=== PATIENT | female | born 1955 | race Caucasian/White ===

== ENCOUNTER 2020-02-24 10:46 | Emergency (ER) | payer OTHER ==
[~2020-02-24] VITALS: Ht 165.1 cm; Wt 79.4 kg
--- NOTE | 2020-02-24 11:01 | NUR ---
DR. RIVERO EVALUATING PATIENT
[2020-02-24] MEDS ORDERED: PANTOPRAZOLE 40 MG 10ML VIAL IV STA (11:11)
[2020-02-24] MEDS ORDERED: ONDANSETRON HCL INJ 2MG/ML 2ML 2 MG/ML VIAL IV STA (11:11)
[2020-02-24] MEDS ORDERED: MORPHINE SULFATE 2 MG/ML SYR 1ML IV STA (11:11)
[2020-02-24] MEDS ORDERED: SODIUM CHLORIDE 0.9% 1000ML 1,000 ML IV STA (11:11)
[2020-02-24 11:27] LABS: BASOPHILS # (AUTO) 0.1 (0.0-0.1); BASOPHILS % 1.2 % (0.0-1.0); EOSINOPHILS # (AUTO) 0.7 (0.0-0.4); EOSINOPHILS % 8.1 % (0.0-6.0); HEMATOCRIT 37.4 % (34.2-44.1); HEMOGLOBIN 12.3 g/dL (12.0-16.0); LYMPHOCYTES # (AUTO) 2.2 (1.0-3.2); LYMPHOCYTES % 25.2 % (18.0-39.1); MEAN CORPUSCULAR HEMOGLOBIN 28.8 pg (28-32); MEAN CORPUSCULAR HGB CONC 32.9 g/dL (31-35); MEAN CORPUSCULAR VOLUME 87.6 fL (81-99); MONOCYTES # (AUTO) 1.5 (0.2-0.8); MONOCYTES % 17.2 % (4.4-11.3); NEUTROPHILS # (AUTO) 4.1 (2.1-6.9); NEUTROPHILS % 47.8 % (38.7-80.0); PLATELET COUNT 240 x10e3/uL (140-360); RED BLOOD COUNT 4.27 x10e6/uL (3.6-5.1); RED CELL DISTRIBUTION WIDTH 14.5 % (11.7-14.4)
[2020-02-24 11:32] LABS: PARTIAL THROMBOPLASTIN TIME 31.5 seconds (23.8-35.5)
[2020-02-24 11:39] LABS: CLARITY,URINE SL CLOUDY (CLEAR); COLOR,URINE YELLOW (YELLOW)
[2020-02-24 11:40] LABS: BILIRUBIN,URINE SMALL (NEGATIVE); KETONES,URINE TRACE (NEGATIVE); LEUKOCYTE ESTERASE ,URINE NEGATIVE (NEGATIVE); NITRITE,URINE NEGATIVE (NEGATIVE); PROTEIN,URINE DIPSTICK >=300 (NEGATIVE); URINE UROBILINOGEN 0.2 mg/dL (0.2 - 1)
[2020-02-24 11:43] LABS: ALANINE AMINOTRANSFERASE 15 IU/L (0-55); ALBUMIN 3.9 g/dL (3.5-5.0); ALKALINE PHOSPHATASE 99 IU/L (40-150); ANION GAP 18.3 mmol/L (8-16); BLOOD UREA NITROGEN 16 mg/dL (7-26); BUN/CREATININE RATIO 17 (6-25); CALCIUM 10.4 mg/dL (8.4-10.2); CARBON DIOXIDE 26 mmol/L (22-29); CHLORIDE 102 mmol/L (98-107); CREATINE KINASE 84 IU/L (29-168); CREATININE, SERUM 0.93 mg/dL (0.57-1.11); EST GLOMERULAR FILTRATION RATE > 60 ML/MIN (60-); GLUCOSE 260 mg/dL (74-118); INR 1.47; LIPASE 62 U/L (8-78); MAGNESIUM 1.4 MG/DL (1.3-2.1); POTASSIUM 4.3 mmol/L (3.5-5.1); PROTHROMBIN TIME 18.7 seconds (11.9-14.5); SODIUM 142 mmol/L (136-145)
[2020-02-24 11:49] LABS: AMORPHOUS SEDIMENT,URINE MODERATE (FEW); EPITHELIAL CELLS,URINE RARE /LPF; WBC,URINE (MAN) 0-5 /HPF (0-5)
[2020-02-24 11:52] LABS: BACTERIA,URINE MODERATE /HPF
--- NOTE | 2020-02-24 12:07 | Diagnostic Imaging Report ---
EXAMINATION: CHEST SINGLE (PORTABLE) INDICATION: Abdominal pain, diarrhea COMPARISON: None FINDINGS: LINES/TUBES:None LUNGS:The lungs are well-inflated. No focal consolidation or pulmonary edema. PLEURA:No pleural effusion or pneumothorax. MEDIASTINUM:The cardiomediastinal silhouette appears normal in size and shape. BONES/SOFT TISSUES:No acute osseous injury. ABDOMEN:No free air under the diaphragm. IMPRESSION: No focal pneumonia or pulmonary edema. Signed by: Charisma Kaur MD on 02/24/2020 12:04 PM
--- OUTSIDE RECORDS SUMMARY | 2020-02-24 13:11 | XMS REPORT | Continuity of Care Document ---
Author Author [facility] Organization [facility] Address [address] [place] [address] Phone Unavailable Care Team Providers Care Production Helper Name Role Phone Milton RIVERO Attphys Unavailable Problems This patient has no known problems. Allergies, Adverse Reactions, Alerts This patient has no known allergies or adverse reactions. Medications This patient has no known medications. Procedures This patient has no known procedures. Results Test Description Test Time Test Comments Results Result Comments Source CHEST SINGLE (PORTABLE) 2020-02-24 12:03:00 [place] [address] Patient Name: VERNA VILLATORO MR #: [id number] : 1955 Age/Sex: 64/F Req #: [id number] Adm Physician: Ordered by: ABRAHAM RIVERO MD Report #: [id number] Location: ER Room/Bed: Procedure: [id number] DX/CHEST SINGLE (PORTABLE) Exam Date: 02/24/20 Exam Time: 1130 REPORT STATUS: Signed EXAMINATION: CHEST SINGLE (PORTABLE) INDICATION: Abdominal pain, diarrhea COMPARISON: None FINDINGS: LINES/TUBES:None LUNGS:The lungs are well-inflated. No focal consolidation or pulmonary edema. PLEURA:No pleural effusion or pneumothorax. MEDIASTINUM:The cardiomediastinal silhouette appears normal in size and shape. BONES/SOFT TISSUES:No acute osseous injury. ABDOMEN:No free air under the diaphragm. IMPRESSION: No focal pneumonia or pulmonary edema. Signed by: Sreedhar Matthews MD on 02/24/2020 12:04 PM Dictated By: SREEDHAR MATTHEWS MD 120 Transcribed By: MILAD on 02/24/201203 COPY TO: ABRAHAM RIVERO MD
--- NOTE | 2020-02-24 13:37 | Diagnostic Imaging Report ---
EXAM: CT Abdomen and Pelvis WITH intravenous contrast INDICATION: Abdominal pain, diarrhea COMPARISON: Chest radiograph of earlier the same day TECHNIQUE: Abdomen and pelvis were scanned utilizing a multidetector helical scanner from the lung base to the pubic symphysis after administration of IV contrast. Coronal and sagittal reformations were obtained. Routine protocol was performed. Scan was performed during portal venous phase. IV CONTRAST: 100mL of Isovue 370 ORAL CONTRAST: Water RADIATION DOSE: Total DLP: 713 mGy*cm Dose modulation, iterative reconstruction, and/or weight based adjustment of the mA/kV was utilized to reduce the radiation dose to as low as reasonably achievable. FINDINGS: LOWER THORAX: No focal lung base consolidation. HEPATOBILIARY: Diffuse hepatic steatosis. No focal liver lesion. No biliary ductal dilation. Status post cholecystectomy. SPLEEN: No splenomegaly. PANCREAS: No focal masses or ductal dilatation. ADRENALS: No adrenal nodules. KIDNEYS/URETERS: No hydronephrosis or renal calculi. 2.3 cm left midpole renal cyst. PELVIC ORGANS/BLADDER: Unremarkable. PERITONEUM / RETROPERITONEUM: No free air or fluid. LYMPH NODES: No lymphadenopathy. VESSELS: Mild scattered atherosclerotic calcifications of the nonaneurysmal abdominal aorta. GI TRACT: No abnormal bowel thickening. No bowel obstruction. Appendix not well visualized however there are no inflammatory findings in the right lower quadrant to suggest appendicitis. BONES AND SOFT TISSUES: No acute osseous injury. Degenerative changes of the symphysis pubis. IMPRESSION: Diffuse hepatic steatosis. Otherwise, no acute findings in the abdomen or pelvis. Signed by: Charisma Kaur MD on 02/24/2020 1:34 PM
[2020-02-24] MEDS ORDERED: IOPAMIDOL 370 MG/ML 200 ML INFUS..BTL INJ ONE (13:43)
--- NOTE | 2020-02-24 14:05 | NUR ---
Pt received CT scan.
--- NOTE | 2020-02-24 14:27 | Emergency Department Note ---
History of Present Illnes History of Present Illness Chief Complaint: Abdominal Complaints History of Present Illness This is a 64 year old female C/O 10 DAYS BLOATING, LOW GRADE TEMP 100.9, MULTIPLE EPISODES OF DIARRHEA. DENIES ANY N/V. 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 Any updates have been documented here. Past Medical History Recent Fever: No Clinical Suspicion of Infectio: No New/Unexplained Change in Ment: No Past Medical History: Hypertension, Diabetes, Hyperlipedemia Past Surgical History: Cholecysctectomy, , Knee Replacement Other Surgery: EXPLORATORY CYST REMOVAL Social History Smoking Cessation: Former smoker Counseling Performed: No Alcohol Use: Social Any Illegal Drug Use: No TB Exposure/Symptoms: No Physically hurt or threatened: No Family History Family history of heart diseas: No Other Any Pre-Existing Lines (PICC,: No Review of Systems Review of Systems Constitutional: Reports no symptoms EENTM: Reports no symptoms Cardiovascular: Reports no symptoms Respiratory: Reports no symptoms Gastrointestinal: Reports as per HPI Genitourinary: Reports no symptoms Musculoskeletal: Reports no symptoms Integumentary: Reports no symptoms Neurological: Reports no symptoms Psychological: Reports no symptoms Endocrine: Reports no symptoms Hematological/Lymphatic: Reports no symptoms Physical Exam Related Data Allergies: Coded Allergies: No Known Allergies (Unverified , 02/24/20) Triage Vital Signs Vital Signs Date Time Temp Pulse Resp B/P (MAP) Pulse Ox O2 Delivery O2 Flow Rate FiO2 02/24/20 10:51 97.8 71 18 164/80 98 Room Air Vital signs reviewed: Yes Physical Exam CONSTITUTIONAL Constitutional: Present well-developed, Present well-nourished HENT HENT: Present normocephalic, Present atraumatic, Present oropharynx rogelio ar/moist, Present nose normal HENT L/R: Present left ext ear normal, Present right ext ear normal EYES Eyes: Reports PERRL, Reports conjunctivae normal NECK Neck: Present ROM normal PULMONARY Pulmonary: Present effort normal, Present breath sounds normal CARDIOVASCULAR Cardiovascular: Present regular rhythm, Present heart sounds normal, Present capillary refill normal, Present normal rate GASTROINTESTINAL Abdominal: Present soft, Present nontender, Present bowel sounds normal GENITOURINARY Genitourinary: Present exam deferred SKIN Skin: Present warm, Present dry MUSCULOSKELETAL Musculoskeletal: Present ROM normal NEUROLOGICAL Neurological: Present alert, Present oriented x 3, Present no gross motor or sensory deficits PSYCHOLOGICAL Psychological: Present mood/affect normal, Present judgement normal Results Laboratory Result Diagram: 02/24/20 1100 02/24/20 1100 Laboratory Laboratory Tests Test 02/24/20 11:20 02/24/20 11:05 02/24/20 11:00 Coronavirus (PCR) Not detected (NOTDETECTED) Urine Color Yellow (YELLOW) Urine Clarity Sl cloudy (CLEAR) Urine pH 5 (5 - 7) Urine Specific [place] >=1.030 (1.010-1.025) Urine Protein >=300 (NEGATIVE) Urine Glucose (UA) 1+ (NEGATIVE) Urine Ketones Trace (NEGATIVE) Urine Blood Negative (NEGATIVE) Urine Nitrite Negative (NEGATIVE) Urine Bilirubin Small (NEGATIVE) Urine Urobilinogen 0.2 mg/dL (0.2 - 1) Urine Leukocyte Esterase Negative (NEGATIVE) Urine RBC None /HPF (0-5) Urine WBC 0-5 /HPF (0-5) Urine Epithelial Cells Rare /LPF (NONE) Urine Amorphous Sediment Moderate (FEW) Urine Bacteria Moderate /HPF (NONE) White Blood Count 8.64 x10e3/uL (4.8-10.8) Red Blood Count 4.27 x10e6/uL (3.6-5.1) Hemoglobin 12.3 g/dL (12.0-16.0) Hematocrit 37.4 % (34.2-44.1) Mean Corpuscular Volume 87.6 fL (81-99) Mean Corpuscular Hemoglobin 28.8 pg (28-32) Mean Corpuscular Hemoglobin Concent 32.9 g/dL (31-35) Red Cell Distribution Width 14.5 % (11.7-14.4) Platelet Count 240 x10e3/uL (140-360) Neutrophils (%) (Auto) 47.8 % (38.7-80.0) Lymphocytes (%) (Auto) 25.2 % (18.0-39.1) Monocytes (%) (Auto) 17.2 % (4.4-11.3) Eosinophils (%) (Auto) 8.1 % (0.0-6.0) Basophils (%) (Auto) 1.2 % (0.0-1.0) Neutrophils # (Auto) 4.1 (2.1-6.9) Lymphocytes # (Auto) 2.2 (1.0-3.2) Monocytes # (Auto) 1.5 (0.2-0.8) Eosinophils # (Auto) 0.7 (0.0-0.4) Basophils # (Auto) 0.1 (0.0-0.1) Absolute Immature Granulocyte (auto 0.04 x10e3/uL (0-0.1) Prothrombin Time 18.7 seconds (11.9-14.5) Prothromb Time International Ratio 1.47 Activated Partial Thromboplast Time 31.5 seconds (23.8-35.5) Sodium Level 142 mmol/L (136-145) Potassium Level 4.3 mmol/L (3.5-5.1) Chloride Level 102 mmol/L (98-107) Carbon Dioxide Level 26 mmol/L (22-29) Anion Gap 18.3 mmol/L (8-16) Blood Urea Nitrogen 16 mg/dL (7-26) Creatinine 0.93 mg/dL (0.57-1.11) Estimat Glomerular Filtration Rate > 60 ML/MIN (60-) BUN/Creatinine Ratio 17 (6-25) Glucose Level 260 mg/dL (74-118) Calcium Level 10.4 mg/dL (8.4-10.2) Magnesium Level 1.4 MG/DL (1.3-2.1) Total Bilirubin 0.7 mg/dL (0.2-1.2) Aspartate Amino Transf (AST/SGOT) 14 IU/L (5-34) Alanine Aminotransferase (ALT/SGPT) 15 IU/L (0-55) Alkaline Phosphatase 99 IU/L (40-150) Creatine Kinase 84 IU/L (29-168) Creatine Kinase MB 1.40 ng/mL (0-5.0) Troponin I < 0.001 ng/mL (0-0.300) Total Protein 7.8 g/dL (6.5-8.1) Albumin 3.9 g/dL (3.5-5.0) Globulin 3.9 g/dL (2.3-3.5) Albumin/Globulin Ratio 1.0 (0.8-2.0) Lipase 62 U/L (8-78) Lab results reviewed: Yes Imaging Imaging results reviewed: Yes Impressions EXAMINATION: CHEST SINGLE (PORTABLE) INDICATION: Abdominal pain, diarrhea COMPARISON: None FINDINGS: LINES/TUBES:None LUNGS:The lungs are well-inflated. No focal consolidation or pulmonary edema. PLEURA:No pleural effusion or pneumothorax. MEDIASTINUM:The cardiomediastinal silhouette appears normal in size and shape. BONES/SOFT TISSUES:No acute osseous injury. ABDOMEN:No free air under the diaphragm. IMPRESSION: No focal pneumonia or pulmonary edema. Signed by: Charisma Kaur MD on 02/24/2020 12:04 PM EXAM: CT Abdomen and Pelvis WITH intravenous contrast INDICATION: Abdominal pain, diarrhea COMPARISON: Chest radiograph of earlier the same day TECHNIQUE: Abdomen and pelvis were scanned utilizing a multidetector helical scanner from the lung base to the pubic symphysis after administration of IV contrast. Coronal and sagittal reformations were obtained. Routine protocol was performed. Scan was performed during portal venous phase. IV CONTRAST: 100mL of Isovue 370 ORAL CONTRAST: Water RADIATION DOSE: Total DLP: 713 mGy*cm Dose modulation, iterative reconstruction, and/or weight based adjustment of the mA/kV was utilized to reduce the radiation dose to as low as reasonably achievable. FINDINGS: LOWER THORAX: No focal lung base consolidation. HEPATOBILIARY: Diffuse hepatic steatosis. No focal liver lesion. No biliary ductal dilation. Status post cholecystectomy. SPLEEN: No splenomegaly. PANCREAS: No focal masses or ductal dilatation. ADRENALS: No adrenal nodules. KIDNEYS/URETERS: No hydronephrosis or renal calculi. 2.3 cm left midpole renal cyst. PELVIC ORGANS/BLADDER: Unremarkable. PERITONEUM / RETROPERITONEUM: No free air or fluid. LYMPH NODES: No lymphadenopathy. VESSELS: Mild scattered atherosclerotic calcifications of the nonaneurysmal abdominal aorta. GI TRACT: No abnormal bowel thickening. No bowel obstruction. Appendix not well visualized however there are no inflammatory findings in the right lower quadrant to suggest appendicitis. BONES AND SOFT TISSUES: No acute osseous injury. Degenerative changes of the symphysis pubis. IMPRESSION: Diffuse hepatic steatosis. Otherwise, no acute findings in the abdomen or pelvis. Signed by: Charisma Kaur MD on 02/24/2020 1:34 PM Assessment & Plan Medical Decision Making MDM RECENT COVID WITH ABD PAIN AND N/D - CHECK CBC, CHEM, LIPASE, CARDIACS, UA/CX, CT ABD/PELVIS, COVID SWAB - R/O ELECTROLYTE ABNL, RENAL INSUFF, SBO, MASS, COLITIS, PANCREATITIS Reassessment Reassessment DC HOME, BENTYL, ZOFRAN ODT, PUCH PO FLUIDS, F/U PCP TOMORROW Assessment & Plan Final Impression: (1) Diarrhea (2) Abdominal cramps Depart Disposition: HOME, SELF-CARE Last Vital Signs Date Time Temp Pulse Resp B/P (MAP) Pulse Ox O2 Delivery O2 Flow Rate FiO2 02/24/20 11:29 70 18 157/67 99 Room Air 02/24/20 10:51 97.8 Medications in the ED Pantoprazole Sodium 40 mg ONCE STAT IV Last administered on 02/24/20at 11:41; Admin Dose 40 MG; Start 02/24/20 at 11:11; Stop 02/24/20 at 11:24; Status DC Morphine Sulfate 4 mg ONCE STAT IV Last administered on 02/24/20at 11:41; Admin Dose 4 MG; Start 02/24/20 at 11:11; Stop 02/24/20 at 11:23; Status DC Ondansetron HCl 4 mg ONCE STAT IV Last administered on 02/24/20at 11:41; Admin Dose 4 MG; Start 02/24/20 at 11:11; Stop 02/24/20 at 11:23; Status DC Sodium Chloride 1,000 ml @ 0 mls/hr Q0M STAT IV Last administered on 02/24/20at 11:41; Admin Dose 999 MLS/HR; Start 02/24/20 at 11:11; Stop 02/24/20 at 11:15; Status DC Iopamidol 74,000 mg STK-MED ONCE INJ ; Start 02/24/20 at 13:43; Stop 02/24/20 at 13:37; Status DC ABRAHAM RIVERO MD Feb 24, 2020 14:26
[2020-02-24 14:54] VITALS: BP 148/66
== END 2020-02-24 15:06 | disposition home or self-care (01) ==
LOC: ER 11:00
DX: R10.9 Unspecified abdominal pain (principal); R19.7 Diarrhea, unspecified; K76.0 Fatty (change of) liver, not elsewhere classified; I10 Essential (primary) hypertension; E11.9 Type 2 diabetes mellitus without complications; E78.5 Hyperlipidemia, unspecified; Z11.59 Encounter for screening for other viral diseases; Z87.891 Personal history of nicotine dependence
CPT/HCPCS: 36415; 71045; 74177; 80053; 81001; 82550; 82553; 83690; 83735; 84484; 85025; 85610; 85730; 87086; 99284; C9113; J2270; J2405; J7030; Q9967; U0002

== ENCOUNTER 2020-06-10 19:03 | Inpatient (IN) | payer OTHER ==
[~2020-06-10] VITALS: Ht 165.1 cm; Wt 79.4 kg
[2020-06-10 19:31] LABS: BASOPHILS # (AUTO) 0.1 (0.0-0.1); BASOPHILS % 0.7 % (0.0-1.0); EOSINOPHILS # (AUTO) 0.2 (0.0-0.4); EOSINOPHILS % 2.2 % (0.0-6.0); HEMATOCRIT 39.4 % (34.2-44.1); HEMOGLOBIN 12.8 g/dL (12.0-16.0); LYMPHOCYTES # (AUTO) 1.7 (1.0-3.2); LYMPHOCYTES % 17.1 % (18.0-39.1); MEAN CORPUSCULAR HEMOGLOBIN 29.1 pg (28-32); MEAN CORPUSCULAR HGB CONC 32.5 g/dL (31-35); MEAN CORPUSCULAR VOLUME 89.5 fL (81-99); MONOCYTES # (AUTO) 0.7 (0.2-0.8); MONOCYTES % 6.7 % (4.4-11.3); NEUTROPHILS # (AUTO) 7.4 (2.1-6.9); PLATELET COUNT 237 x10e3/uL (140-360); RED CELL DISTRIBUTION WIDTH 13.9 % (11.7-14.4)
[2020-06-10] MEDS ORDERED: NITROGLYCERIN 2% OINT 1 GM PKT TOP ONE (19:45)
[2020-06-10 19:49] LABS: INR 0.94
[2020-06-10 19:50] LABS: PARTIAL THROMBOPLASTIN TIME 30.5 seconds (23.8-35.5)
[2020-06-10 19:55] LABS: ALANINE AMINOTRANSFERASE 28 IU/L (0-55); ALBUMIN 4.3 g/dL (3.5-5.0); ALBUMIN/GLOBULIN RATIO 1.5 (0.8-2.0); ALKALINE PHOSPHATASE 71 IU/L (40-150); BLOOD UREA NITROGEN 17 mg/dL (7-26); BUN/CREATININE RATIO 23 (6-25); CALCIUM 9.1 mg/dL (8.4-10.2); CARBON DIOXIDE 24 mmol/L (22-29); CHLORIDE 103 mmol/L (98-107); CREATINE KINASE 230 IU/L (29-168); CREATININE, SERUM 0.75 mg/dL (0.57-1.11); EST GLOMERULAR FILTRATION RATE > 60 ML/MIN (60-); GLUCOSE 170 mg/dL (74-118); SODIUM 140 mmol/L (136-145)
[2020-06-10] MEDS ORDERED: AMLODIPINE BESY10 MG (22:23)
[2020-06-10] MEDS ORDERED: VALSARTAN80 MG (22:23)
[2020-06-10] MEDS ORDERED: FENOFIBRATE145 M1 (22:23)
[2020-06-10] MEDS ORDERED: ZOLPIDEM TARTRAT5 MG (22:23)
[2020-06-10] MEDS ORDERED: ULTRAM 50MG50 MG (22:23)
[2020-06-10] MEDS ORDERED: ESIDRIX25 MG (22:23)
[2020-06-10 22:30] LABS: BILIRUBIN,URINE NEGATIVE (NEGATIVE); CLARITY,URINE CLEAR (CLEAR); COLOR,URINE YELLOW (YELLOW); KETONES,URINE NEGATIVE (NEGATIVE); LEUKOCYTE ESTERASE ,URINE NEGATIVE (NEGATIVE); NITRITE,URINE NEGATIVE (NEGATIVE); PROTEIN,URINE DIPSTICK >=300 (NEGATIVE); URINE UROBILINOGEN 0.2 mg/dL (0.2 - 1)
[2020-06-10] MEDS ORDERED: ONDANSETRON HCL INJ 2MG/ML 2ML 2 MG/ML VIAL IV STA (22:53)
[2020-06-10] MEDS ORDERED: MORPHINE SULFATE 2 MG/ML SYR 1ML IV STA (22:53)
[2020-06-10 22:54] LABS: BACTERIA,URINE FEW /HPF; EPITHELIAL CELLS,URINE FEW /LPF; WBC,URINE (MAN) 0-5 /HPF (0-5)
[2020-06-10 23:17] LABS: CREATINE KINASE MB 3.3 ng/mL (0-5.0)
[2020-06-10 23:40] VITALS: BP 158/77
[2020-06-10] MEDS ORDERED: METFORMIN HCL500 MG PO (23:43)
[2020-06-10] MEDS ORDERED: PNEUMOCOCCAL VACCINE POLYVALENT 23 MCG/0.5 ML VIAL IM SCH (23:43)
[2020-06-10] MEDS ORDERED: INFLUENZA VIRUS VAC SPLIT INJ 0.5 ML SYR IM SCH (23:43)
[2020-06-10] MEDS ORDERED: GLYBURIDE5 MG PO (23:43)
[2020-06-10] MEDS ORDERED: LABETALOL HCL100 MG PO (23:43)
[2020-06-10 23:53] VITALS: BP 158/77
[2020-06-11] VITALS (8 sets, daily range): BP systolic 132–160; BP diastolic 72–84
[2020-06-11 05:20] LABS: BASOPHILS # (AUTO) 0.1 (0.0-0.1); BASOPHILS % 0.7 % (0.0-1.0); EOSINOPHILS # (AUTO) 0.4 (0.0-0.4); HEMATOCRIT 34.7 % (34.2-44.1); HEMOGLOBIN 11.5 g/dL (12.0-16.0); LYMPHOCYTES # (AUTO) 2.6 (1.0-3.2); LYMPHOCYTES % 27.7 % (18.0-39.1); MEAN CORPUSCULAR HEMOGLOBIN 29.6 pg (28-32); MEAN CORPUSCULAR HGB CONC 33.1 g/dL (31-35); MEAN CORPUSCULAR VOLUME 89.4 fL (81-99); MONOCYTES % 10.7 % (4.4-11.3); NEUTROPHILS # (AUTO) 5.3 (2.1-6.9); NEUTROPHILS % 56.6 % (38.7-80.0); PLATELET COUNT 229 x10e3/uL (140-360); RED BLOOD COUNT 3.88 x10e6/uL (3.6-5.1); RED CELL DISTRIBUTION WIDTH 13.7 % (11.7-14.4)
[2020-06-11 05:43] LABS: ALANINE AMINOTRANSFERASE 22 IU/L (0-55); ALBUMIN 3.7 g/dL (3.5-5.0); ALBUMIN/GLOBULIN RATIO 1.5 (0.8-2.0); ALKALINE PHOSPHATASE 63 IU/L (40-150); ANION GAP 12.4 mmol/L (8-16); BLOOD UREA NITROGEN 15 mg/dL (7-26); BUN/CREATININE RATIO 23 (6-25); CALCIUM 8.8 mg/dL (8.4-10.2); CARBON DIOXIDE 26 mmol/L (22-29); CHLORIDE 106 mmol/L (98-107); CREATININE, SERUM 0.66 mg/dL (0.57-1.11); EST GLOMERULAR FILTRATION RATE > 60 ML/MIN (60-); GLUCOSE 161 mg/dL (74-118); POTASSIUM 3.4 mmol/L (3.5-5.1); SODIUM 141 mmol/L (136-145)
[2020-06-11 05:57] LABS: CREATINE KINASE 157 IU/L (29-168)
[2020-06-11] MEDS ORDERED: POTASSIUM CHLORIDE 20 MEQ TAB CR PO STA (09:37)
[2020-06-11] MEDS ORDERED: FUROSEMIDE INJ 10 MG/ML 4 ML VIAL IV ONE ×2 (10:00→13:45)
[2020-06-11] MEDS ORDERED: AZITHROMYCIN 500MG/NS 250 ML 250 ML IV SCH (10:30)
[2020-06-11 10:38] LABS: CHOL/HDL RATIO 3.4 (3.0-3.6)
[2020-06-11 10:58] LABS: THYROID STIMULATING HORMONE 2.737 uIU/mL (0.350-4.940)
[2020-06-11] MEDS ORDERED: REGADENOSON 0.4 MG/5 ML SYR IV ONE (11:39)
[2020-06-11] MEDS ORDERED: POTASSIUM CHLORIDE 10MEQ EA PO ONE ×2 (13:45→16:45)
[2020-06-11] MEDS ORDERED: SODIUM CHLORIDE 0.9% 50ML 50 ML ONE (14:07)
[2020-06-11] MEDS: POTASSIUM CHLORIDE 10MEQ EA PO ONE ×2 (14:22→16:58)
[2020-06-11] MEDS: CEFTRIAXONE SOD 1 GM/NS 50 ML 50 ML IV SCH (14:22)
[2020-06-11 14:57] LABS: CREATINE KINASE 142 IU/L (29-168)
[2020-06-11] MEDS: AZITHROMYCIN 500MG/NS 250 ML 250 ML IV SCH (15:27)
[2020-06-11] MEDS: LABETALOL HCL 100 MG TAB PO SCH (16:57)
[2020-06-11] MEDS ORDERED: SODIUM CHLORIDE 0.9% 250ML 250 ML ONE (17:48)
[2020-06-11] MEDS: HYDROCODONE/APAP 5MG-325MG TAB PO PRN (18:25)
[2020-06-11] MEDS: FUROSEMIDE INJ 10 MG/ML 4 ML VIAL IV SCH (22:00)
[2020-06-12] VITALS (9 sets, daily range): BP systolic 119–152; BP diastolic 63–79
[2020-06-12] MEDS: FUROSEMIDE INJ 10 MG/ML 4 ML VIAL IV SCH ×3 (06:01→21:38)
[2020-06-12 06:47] LABS: BASOPHILS # (AUTO) 0.1 (0.0-0.1); BASOPHILS % 1.1 % (0.0-1.0); EOSINOPHILS # (AUTO) 0.5 (0.0-0.4); EOSINOPHILS % 5.3 % (0.0-6.0); HEMATOCRIT 39.7 % (34.2-44.1); HEMOGLOBIN 12.8 g/dL (12.0-16.0); LYMPHOCYTES # (AUTO) 2.1 (1.0-3.2); LYMPHOCYTES % 24.6 % (18.0-39.1); MEAN CORPUSCULAR HEMOGLOBIN 29.1 pg (28-32); MEAN CORPUSCULAR HGB CONC 32.2 g/dL (31-35); MEAN CORPUSCULAR VOLUME 90.2 fL (81-99); MONOCYTES # (AUTO) 0.9 (0.2-0.8); MONOCYTES % 11.1 % (4.4-11.3); NEUTROPHILS # (AUTO) 4.9 (2.1-6.9); NEUTROPHILS % 57.7 % (38.7-80.0); PLATELET COUNT 249 x10e3/uL (140-360); RED CELL DISTRIBUTION WIDTH 13.9 % (11.7-14.4)
[2020-06-12 07:15] LABS: ALANINE AMINOTRANSFERASE 23 IU/L (0-55); ALBUMIN/GLOBULIN RATIO 1.4 (0.8-2.0); ALKALINE PHOSPHATASE 57 IU/L (40-150); ANION GAP 12.6 mmol/L (8-16); BLOOD UREA NITROGEN 15 mg/dL (7-26); BUN/CREATININE RATIO 24 (6-25); CALCIUM 9.3 mg/dL (8.4-10.2); CARBON DIOXIDE 29 mmol/L (22-29); CHLORIDE 104 mmol/L (98-107); CREATININE, SERUM 0.63 mg/dL (0.57-1.11); EST GLOMERULAR FILTRATION RATE > 60 ML/MIN (60-); GLUCOSE 150 mg/dL (74-118); POTASSIUM 3.6 mmol/L (3.5-5.1); SODIUM 142 mmol/L (136-145)
[2020-06-12] MEDS: HYDROCODONE/APAP 5MG-325MG TAB PO PRN ×3 (08:50→21:50)
[2020-06-12] MEDS ORDERED: AMLODIPINE BESYLATE 10 MG TAB PO SCH (09:00)
[2020-06-12] MEDS ORDERED: REGADENOSON 0.4 MG/5 ML SYR IV ONE (09:11)
[2020-06-12] MEDS: HYDROCHLOROTHIAZIDE 25 MG TAB PO SCH (10:56)
[2020-06-12] MEDS: LABETALOL HCL 100 MG TAB PO SCH (10:57)
[2020-06-12] MEDS: FENOFIBRATE 145 MG TAB PO SCH (10:57)
[2020-06-12] MEDS: CEFTRIAXONE SOD 1 GM/NS 50 ML 50 ML IV SCH (10:57)
[2020-06-12] MEDS ORDERED: METFORMIN HCL 500 MG TAB PO SCH (12:15)
[2020-06-12] MEDS ORDERED: GLYBURIDE 5 MG TAB PO SCH (12:15)
[2020-06-12] MEDS: AZITHROMYCIN 500MG/NS 250 ML 250 ML IV SCH (13:59)
[2020-06-12] MEDS ORDERED: TEMAZEPAM 7.5 MG CAP PO PRN (17:00)
[2020-06-12] MEDS: CARVEDILOL 12.5 MG TAB PO SCH (17:35)
[2020-06-12] MEDS ORDERED: TEMAZEPAM 15 MG CAP PO PRN (21:00)
[2020-06-13] VITALS (11 sets, daily range): BP systolic 120–142; BP diastolic 59–85
[2020-06-13] MEDS: FUROSEMIDE INJ 10 MG/ML 4 ML VIAL IV SCH (06:22)
[2020-06-13 06:24] LABS: BASOPHILS # (AUTO) 0.1 (0.0-0.1); BASOPHILS % 0.9 % (0.0-1.0); EOSINOPHILS # (AUTO) 0.5 (0.0-0.4); EOSINOPHILS % 5.4 % (0.0-6.0); HEMATOCRIT 42.5 % (34.2-44.1); LYMPHOCYTES # (AUTO) 2.5 (1.0-3.2); LYMPHOCYTES % 27.6 % (18.0-39.1); MEAN CORPUSCULAR HEMOGLOBIN 29.2 pg (28-32); MEAN CORPUSCULAR HGB CONC 32.9 g/dL (31-35); MEAN CORPUSCULAR VOLUME 88.5 fL (81-99); MONOCYTES # (AUTO) 1.1 (0.2-0.8); NEUTROPHILS # (AUTO) 4.9 (2.1-6.9); NEUTROPHILS % 53.9 % (38.7-80.0); PLATELET COUNT 271 x10e3/uL (140-360); RED CELL DISTRIBUTION WIDTH 13.4 % (11.7-14.4)
[2020-06-13 06:44] LABS: ANION GAP 15.1 mmol/L (8-16); BLOOD UREA NITROGEN 21 mg/dL (7-26); BUN/CREATININE RATIO 30 (6-25); CALCIUM 9.4 mg/dL (8.4-10.2); CARBON DIOXIDE 30 mmol/L (22-29); CHLORIDE 101 mmol/L (98-107); CREATININE, SERUM 0.71 mg/dL (0.57-1.11); EST GLOMERULAR FILTRATION RATE > 60 ML/MIN (60-); GLUCOSE 114 mg/dL (74-118); MAGNESIUM 1.5 MG/DL (1.3-2.1); PHOSPHORUS 4.7 MG/DL (2.3-4.7); POTASSIUM 3.1 mmol/L (3.5-5.1); SODIUM 143 mmol/L (136-145)
[2020-06-13] MEDS ORDERED: ONDANSETRON HCL INJ 2MG/ML 2ML 2 MG/ML VIAL IV PRN (08:15)
[2020-06-13] MEDS: CARVEDILOL 12.5 MG TAB PO SCH ×2 (09:00→17:00)
[2020-06-13] MEDS ORDERED: LOSARTAN POTASSIUM 100 MG TAB PO SCH (09:00)
[2020-06-13] MEDS ORDERED: MAGNESIUM SULFATE 2GM/50ML 50 ML IV ONE (11:00)
[2020-06-13] MEDS ORDERED: MIDAZOLAM HCL 2 MG/2 ML VIAL ONE (11:22)
[2020-06-13] MEDS ORDERED: SODIUM CHLORIDE 0.9% 1000ML 1,000 ML ONE (11:22)
[2020-06-13] MEDS ORDERED: IOPAMIDOL 370 MG/ML 200 ML INFUS..BTL INJ ONE (11:22)
[2020-06-13] MEDS ORDERED: VERAPAMIL HCL 2.5 MG/ML 2 ML VIAL ONE (11:22)
[2020-06-13] MEDS ORDERED: FENTANYL CITRATE/PF 100MCG/2 ML INJ ONE (11:22)
[2020-06-13] MEDS ORDERED: HEPARIN SOD/SOD CHLORIDE 2,000 ML ONE (11:22)
[2020-06-13] MEDS ORDERED: LIDOCAINE HCL 2% LOCAL 20 ML VIAL ONE (11:22)
[2020-06-13] MEDS: CEFTRIAXONE SOD 1 GM/NS 50 ML 50 ML IV SCH (13:45)
[2020-06-13] MEDS ORDERED: POTASSIUM CHLORIDE 20 MEQ TAB CR PO ONE (14:00)
[2020-06-13] MEDS: FAMOTIDINE 20 MG TAB PO SCH ×2 (14:14→16:30)
[2020-06-13] MEDS: FENOFIBRATE 145 MG TAB PO SCH (14:15)
[2020-06-13] MEDS: HYDROCHLOROTHIAZIDE 25 MG TAB PO SCH (14:15)
[2020-06-13] MEDS: HYDROCODONE/APAP 5MG-325MG TAB PO PRN (15:17)
[2020-06-13] MEDS ORDERED: COZAAR100 MG PO (16:59)
[2020-06-13] MEDS ORDERED: COREG12.5 MG PO (16:59)
[2020-06-13] MEDS ORDERED: LASIX40 MG PO (17:02)
[2020-06-13] MEDS ORDERED: POTASSIUM CHLO20 ME1 PO (17:35)
== END 2020-06-13 18:21 | disposition home or self-care (01) | DRG 286 ==
LOC: ER 19:43 → ERHOLD 20:57 → MED/SURG 23:36 → MED/SURG3 06-11 17:31 → OBSVTOIN 06-12 15:57
PROVIDERS: ADMIT Internal Medicine; ATTEND Internal Medicine
PROC: 4A023N7 Measurement of Cardiac Sampling and Pressure, Left Heart, Percutaneous Approach (ICD-10-PCS; principal; 2020-06-13)
PROC: B2111ZZ Fluoroscopy of Multiple Coronary Arteries using Low Osmolar Contrast (ICD-10-PCS; 2020-06-13)
PROC: B2151ZZ Fluoroscopy of Left Heart using Low Osmolar Contrast (ICD-10-PCS; 2020-06-13)
DX: I11.0 Hypertensive heart disease with heart failure (principal); I50.21 Acute systolic (congestive) heart failure; J81.1 Chronic pulmonary edema; G47.00 Insomnia, unspecified; E78.5 Hyperlipidemia, unspecified; E11.9 Type 2 diabetes mellitus without complications; Z90.49 Acquired absence of other specified parts of digestive tract; R07.89 Other chest pain; E83.42 Hypomagnesemia; E87.6 Hypokalemia; Z86.19 Personal history of other infectious and parasitic diseases; I49.3 Ventricular premature depolarization
CPT/HCPCS: 36415; 71046; 71250; 78452; 80048; 80053; 80061; 81001; 82550; 82553; 82948; 83735; 83880; 84100; 84443; 84484; 85025; 85379; 85610; 85730; 93005; 93017; 93306; 93458; 99152; 99285; A9502; G0378; J0456; J0696; J1940; J2001; J2250; J2270; J2405; J3010; J3475; J7030; J7050; Q9967; U0002

== ENCOUNTER 2020-12-11 23:33 | Emergency (ER) | payer OTHER ==
[~2020-12-11] VITALS: Ht 165.1 cm; Wt 79.4 kg
[~2020-12-11 23:33] MED LIST: AMLODIPINE BESY10 MG; COREG12.5 MG PO; COZAAR100 MG PO; ESIDRIX25 MG; FENOFIBRATE145 M1; GLYBURIDE5 MG PO; LABETALOL HCL100 MG PO; LASIX40 MG PO; METFORMIN HCL500 MG PO; POTASSIUM CHLO20 ME1 PO; ULTRAM 50MG50 MG; VALSARTAN80 MG; ZOLPIDEM TARTRAT5 MG
== END 2020-12-12 00:15 | disposition home or self-care (01) ==
LOC: ER 23:59
DX: I10 Essential (primary) hypertension (principal); E11.9 Type 2 diabetes mellitus without complications; E78.5 Hyperlipidemia, unspecified
CPT/HCPCS: 99282

== ENCOUNTER 2022-04-07 14:13 | Inpatient (IN) | payer MEDICARE, OTHER ==
[~2022-04-07] VITALS: Ht 165.1 cm; Wt 77.1 kg
[~2022-04-07 14:13] MED LIST changes: -ESIDRIX25 MG; +ESIDRIX25 MG PO
[2022-04-07] MEDS ORDERED: Morphine 2mg Syringe 2 MG/ML SYR IV STA (14:52)
[2022-04-07] MEDS ORDERED: ONDANSETRON HCL INJ 2MG/ML 2ML 2 MG/ML VIAL IV STA (14:52)
[2022-04-07 15:26] LABS: BASOPHILS # (AUTO) 0.1 (0.0-0.1); BASOPHILS % 0.7 % (0.0-1.0); EOSINOPHILS # (AUTO) 0.5 (0.0-0.4); EOSINOPHILS % 5.5 % (0.0-6.0); HEMATOCRIT 38.4 % (34.2-44.1); HEMOGLOBIN 12.1 g/dL (12.0-16.0); LYMPHOCYTES # (AUTO) 2.6 (1.0-3.2); LYMPHOCYTES % 26.6 % (18.0-39.1); MEAN CORPUSCULAR HEMOGLOBIN 28.5 pg (28-32); MEAN CORPUSCULAR HGB CONC 31.5 g/dL (31-35); MEAN CORPUSCULAR VOLUME 90.4 fL (81-99); MONOCYTES # (AUTO) 0.9 (0.2-0.8); MONOCYTES % 9.8 % (4.4-11.3); NEUTROPHILS # (AUTO) 5.5 (2.1-6.9); NEUTROPHILS % 57.1 % (38.7-80.0); PLATELET COUNT 226 x10e3/uL (140-360); RED BLOOD COUNT 4.25 x10e6/uL (3.6-5.1); RED CELL DISTRIBUTION WIDTH 14.2 % (11.7-14.4)
[2022-04-07 15:30] LABS: CLARITY,URINE SL CLOUDY (CLEAR); COLOR,URINE YELLOW (YELLOW); KETONES,URINE NEGATIVE (NEGATIVE); LEUKOCYTE ESTERASE ,URINE TRACE (NEGATIVE); NITRITE,URINE NEGATIVE (NEGATIVE); PROTEIN,URINE DIPSTICK >=300 (NEGATIVE); URINE UROBILINOGEN 0.2 mg/dL (0.2 - 1)
[2022-04-07 15:33] LABS: INR 0.87; PROTHROMBIN TIME 12.7 seconds (11.9-14.5)
[2022-04-07 15:41] LABS: BACTERIA,URINE MODERATE /HPF; EPITHELIAL CELLS,URINE MODERATE /LPF; RBC,URINE 0-5 /HPF (0-5); WBC,URINE (MAN) 0-5 /HPF (0-5)
[2022-04-07 15:44] LABS: ALANINE AMINOTRANSFERASE 21 IU/L (0-55); ALBUMIN 3.8 g/dL (3.5-5.0); ALBUMIN/GLOBULIN RATIO 1.2 (0.8-2.0); ALKALINE PHOSPHATASE 95 IU/L (40-150); ANION GAP 18.4 mmol/L (8-16); BLOOD UREA NITROGEN 12 mg/dL (7-26); BUN/CREATININE RATIO 17 (6-25); CALCIUM 9.4 mg/dL (8.4-10.2); CARBON DIOXIDE 24 mmol/L (22-29); CHLORIDE 101 mmol/L (98-107); CREATINE KINASE 87 IU/L (29-168); CREATININE, SERUM 0.72 mg/dL (0.57-1.11); GLUCOSE 241 mg/dL (74-118); MAGNESIUM 1.3 MG/DL (1.3-2.1); POTASSIUM 3.4 mmol/L (3.5-5.1); SODIUM 140 mmol/L (136-145)
[2022-04-07] MEDS ORDERED: POLYETHYLENE GLYCOL 3350 17 GM PACK PO PRN (18:00)
[2022-04-07] MEDS ORDERED: ONDANSETRON HCL INJ 2MG/ML 2ML 2 MG/ML VIAL IV PRN (18:00)
[2022-04-07] MEDS ORDERED: CARVEDILOL25 MG PO (18:02)
[2022-04-07] MEDS ORDERED: CLONIDINE HCL0.1 MG PO (18:02)
[2022-04-07] MEDS ORDERED: ATORVASTATIN CA40 MG PO (18:02)
[2022-04-07] MEDS ORDERED: LOW DOSE ASPIRI81 MG PO (18:02)
[2022-04-07] MEDS ORDERED: NIFEDIPINE ER30 MG PO (18:02)
[2022-04-07] MEDS ORDERED: TRICOR145 MG PO (18:02)
[2022-04-07] MEDS ORDERED: FARXIGA5 MG PO (18:02)
[2022-04-07] MEDS ORDERED: FUROSEMIDE40 MG PO (18:02)
[2022-04-07] MEDS: HYDRALAZINE HCL 20 MG/ML VIAL IV PRN (18:12)
[2022-04-07] MEDS ORDERED: IOPAMIDOL 370 MG/ML 100 ML INFUS..BTL INJ ONE (19:15)
[2022-04-07] MEDS ORDERED: HYDRALAZINE HCL 20 MG/ML VIAL IV PRN (19:30)
[2022-04-07] MEDS ORDERED: MAGNESIUM SULFATE 2GM/50ML 50 ML IV ONE ×2 (19:30→21:30)
[2022-04-07] MEDS ORDERED: FUROSEMIDE INJ 10 MG/ML 4 ML VIAL IV ONE (19:45)
[2022-04-07] MEDS: ACETAMINOPHEN 325 MG TAB PO PRN (19:47)
[2022-04-07 20:34] VITALS: BP 170/79
[2022-04-07] MEDS ORDERED: TEMAZEPAM 7.5 MG CAP PO PRN (21:00)
[2022-04-07] MEDS: TRAMADOL HCL 50 MG TAB PO PRN (21:41)
[2022-04-07 23:14] VITALS: BP 170/79
[2022-04-07] MEDS ORDERED: POTASSIUM CHLORIDE 20 MEQ TAB CR PO ONE (23:30)
[2022-04-07 23:57] VITALS: BP 170/79
[2022-04-08] VITALS (8 sets, daily range): BP systolic 159–183; BP diastolic 68–96
[2022-04-08] MEDS: ONDANSETRON HCL INJ 2MG/ML 2ML 2 MG/ML VIAL IV PRN ×2 (00:55→05:12)
[2022-04-08] MEDS: Morphine 4mg INJECTION 4 MG/ML INJ IV PRN ×2 (00:56→05:13)
[2022-04-08] MEDS: HYDRALAZINE HCL 20 MG/ML VIAL IV PRN ×3 (00:56→09:03)
[2022-04-08 05:49] LABS: BASOPHILS # (AUTO) 0.1 (0.0-0.1); BASOPHILS % 0.6 % (0.0-1.0); EOSINOPHILS # (AUTO) 0.6 (0.0-0.4); EOSINOPHILS % 5.7 % (0.0-6.0); HEMATOCRIT 39.4 % (34.2-44.1); HEMOGLOBIN 12.1 g/dL (12.0-16.0); LYMPHOCYTES # (AUTO) 1.8 (1.0-3.2); LYMPHOCYTES % 18.4 % (18.0-39.1); MEAN CORPUSCULAR HEMOGLOBIN 27.7 pg (28-32); MEAN CORPUSCULAR HGB CONC 30.7 g/dL (31-35); MEAN CORPUSCULAR VOLUME 90.2 fL (81-99); MONOCYTES # (AUTO) 1.1 (0.2-0.8); MONOCYTES % 10.9 % (4.4-11.3); NEUTROPHILS # (AUTO) 6.2 (2.1-6.9); NEUTROPHILS % 64.1 % (38.7-80.0); PLATELET COUNT 212 x10e3/uL (140-360); RED BLOOD COUNT 4.37 x10e6/uL (3.6-5.1); RED CELL DISTRIBUTION WIDTH 14.1 % (11.7-14.4)
[2022-04-08 06:15] LABS: ALBUMIN 3.8 g/dL (3.5-5.0); ALBUMIN/GLOBULIN RATIO 1.2 (0.8-2.0); ANION GAP 17.3 mmol/L (8-16); CALCIUM 9.7 mg/dL (8.4-10.2); CHOL/HDL RATIO 4.1 (3.0-3.6); CREATININE, SERUM 0.62 mg/dL (0.57-1.11); MAGNESIUM 1.7 MG/DL (1.3-2.1); POTASSIUM 3.3 mmol/L (3.5-5.1)
[2022-04-08 06:35] LABS: THYROID STIMULATING HORMONE 2.848 uIU/mL (0.350-4.940)
[2022-04-08 07:03] LABS: CREATINE KINASE MB 1.1 ng/mL (0-5.0)
[2022-04-08] MEDS ORDERED: METFORMIN HCL 500 MG TAB PO SCH (08:00)
[2022-04-08] MEDS: DOCUSATE SODIUM 100 MG CAP PO SCH ×2 (09:00→17:18)
[2022-04-08] MEDS: NIFEDIPINE CR 30 MG TAB PO SCH (09:00)
[2022-04-08] MEDS: CARVEDILOL 12.5 MG TAB PO SCH ×2 (09:00→17:19)
[2022-04-08] MEDS: FAMOTIDINE 20 MG/2 ML VIAL IV SCH ×2 (09:02→17:27)
[2022-04-08] MEDS ORDERED: DEXTROSE 50% SYRINGE 50 ML IV PRN (09:15)
[2022-04-08] MEDS: PROMETHAZINE 12.5MG/ NACL 0.9% 12.5 MG/50 ML BAG IV PRN ×3 (09:37→20:58)
[2022-04-08] MEDS ORDERED: MAGNESIUM SULF 1GRAM/DEXTROSE 100 ML IV ONE (09:45)
[2022-04-08] MEDS ORDERED: SODIUM CHLORIDE 0.9% 250ML 250 ML ONE (09:46)
[2022-04-08] MEDS ORDERED: POTASSIUM CHLORIDE 20 MEQ TAB CR PO ONE (11:00)
[2022-04-08] MEDS ORDERED: POTASSIUM CHLORIDE 20MEQ/100ML 100 ML IV ONE (11:00)
[2022-04-08] MEDS: INSULIN REGULAR, HUMAN 100 UNIT/1 ML SQ SCH ×3 (11:30→21:00)
[2022-04-08] MEDS ORDERED: PREDNISONE 20 MG TAB PO ONE (14:20)
[2022-04-08] MEDS: SODIUM CHLORIDE 0.9% 1000ML 1,000 ML IV SCH (17:14)
[2022-04-08] MEDS: NON-FORMULARY MEDICATION (Dapagliflozin Propanediol (Farxiga) 5 MG) PO SCH (17:14)
[2022-04-08] MEDS: ASPIRIN 81 MG ENTERIC COATED PO SCH (17:15)
[2022-04-08] MEDS: HYDROCHLOROTHIAZIDE 25 MG TAB PO SCH (17:17)
[2022-04-08] MEDS: FENOFIBRATE 145 MG TAB PO SCH (17:18)
[2022-04-08] MEDS: ATORVASTATIN 40 MG TAB PO SCH (17:18)
[2022-04-08 20:16] LABS: ANION GAP 16.9 mmol/L (8-16); CALCIUM 9.4 mg/dL (8.4-10.2); CREATININE, SERUM 0.75 mg/dL (0.57-1.11); POTASSIUM 3.9 mmol/L (3.5-5.1)
[2022-04-08] MEDS: ACETAMINOPHEN 325 MG TAB PO PRN (21:16)
[2022-04-08] MEDS: ZOLPIDEM TARTRATE 5 MG TAB PO PRN (21:16)
[2022-04-09] VITALS (8 sets, daily range): BP systolic 148–171; BP diastolic 67–77
[2022-04-09] MEDS: HYDRALAZINE HCL 20 MG/ML VIAL IV PRN ×3 (01:07→20:12)
[2022-04-09 05:48] LABS: BASOPHILS % 0.3 % (0.0-1.0); HEMATOCRIT 38.4 % (34.2-44.1); HEMOGLOBIN 12.4 g/dL (12.0-16.0); LYMPHOCYTES % 10.3 % (18.0-39.1); MEAN CORPUSCULAR HEMOGLOBIN 27.9 pg (28-32); MEAN CORPUSCULAR HGB CONC 32.3 g/dL (31-35); MEAN CORPUSCULAR VOLUME 86.3 fL (81-99); MONOCYTES # (AUTO) 0.7 (0.2-0.8); MONOCYTES % 6.8 % (4.4-11.3); NEUTROPHILS # (AUTO) 7.9 (2.1-6.9); NEUTROPHILS % 82.1 % (38.7-80.0); PLATELET COUNT 254 x10e3/uL (140-360); RED BLOOD COUNT 4.45 x10e6/uL (3.6-5.1); RED CELL DISTRIBUTION WIDTH 14.6 % (11.7-14.4)
[2022-04-09] MEDS: ACETAMINOPHEN 325 MG TAB PO PRN ×2 (05:49→20:55)
[2022-04-09 06:21] LABS: ALBUMIN 3.6 g/dL (3.5-5.0); ALBUMIN/GLOBULIN RATIO 1.3 (0.8-2.0); ANION GAP 17.8 mmol/L (8-16); CALCIUM 8.9 mg/dL (8.4-10.2); CREATININE, SERUM 0.74 mg/dL (0.57-1.11); MAGNESIUM 1.7 MG/DL (1.3-2.1); PHOSPHORUS 4.1 MG/DL (2.3-4.7); POTASSIUM 3.8 mmol/L (3.5-5.1)
[2022-04-09] MEDS: SODIUM CHLORIDE 0.9% 1000ML 1,000 ML IV SCH (07:26)
[2022-04-09] MEDS: INSULIN REGULAR, HUMAN 100 UNIT/1 ML SQ SCH ×4 (08:00→20:11)
[2022-04-09] MEDS: CARVEDILOL 12.5 MG TAB PO SCH ×2 (08:59→16:57)
[2022-04-09] MEDS: FENOFIBRATE 145 MG TAB PO SCH (08:59)
[2022-04-09] MEDS: HYDROCHLOROTHIAZIDE 25 MG TAB PO SCH (08:59)
[2022-04-09] MEDS: FAMOTIDINE 20 MG/2 ML VIAL IV SCH ×2 (09:00→16:57)
[2022-04-09] MEDS: ASPIRIN 81 MG ENTERIC COATED PO SCH (09:00)
[2022-04-09] MEDS: NON-FORMULARY MEDICATION (Dapagliflozin Propanediol (Farxiga) 5 MG) PO SCH (09:00)
[2022-04-09] MEDS: DOCUSATE SODIUM 100 MG CAP PO SCH ×2 (09:00→16:56)
[2022-04-09] MEDS ORDERED: LOSARTAN POTASSIUM 100 MG TAB PO SCH (09:00)
[2022-04-09] MEDS: NIFEDIPINE CR 30 MG TAB PO SCH (09:01)
[2022-04-09] MEDS: ATORVASTATIN 40 MG TAB PO SCH (09:01)
[2022-04-09] MEDS: TRAMADOL HCL 50 MG TAB PO PRN ×2 (09:08→17:30)
[2022-04-09] MEDS: FUROSEMIDE INJ 10 MG/ML 4 ML VIAL IV NR ×2 (10:55→11:53)
[2022-04-09] MEDS ORDERED: (Dapagliflozin Propanediol (Farxiga) 5 MG) PO ONE (17:00)
[2022-04-09] MEDS ORDERED: MAGNESIUM SULF 1GRAM/DEXTROSE 100 ML IV ONE (17:00)
[2022-04-09] MEDS: ZOLPIDEM TARTRATE 5 MG TAB PO PRN (20:12)
[2022-04-09] MEDS ORDERED: INSULIN GLARGINE 100 UNITS/ML VIAL SQ SCH (21:00)
[2022-04-10] VITALS: BP 134/68
[2022-04-10] MEDS: ACETAMINOPHEN 325 MG TAB PO PRN (02:58)
[2022-04-10 04:00] VITALS: BP 148/77
[2022-04-10 06:07] LABS: BASOPHILS # (AUTO) 0.1 (0.0-0.1); BASOPHILS % 0.8 % (0.0-1.0); EOSINOPHILS # (AUTO) 0.3 (0.0-0.4); EOSINOPHILS % 3.6 % (0.0-6.0); HEMOGLOBIN 12.9 g/dL (12.0-16.0); LYMPHOCYTES # (AUTO) 2.3 (1.0-3.2); LYMPHOCYTES % 27.4 % (18.0-39.1); MEAN CORPUSCULAR HEMOGLOBIN 27.8 pg (28-32); MEAN CORPUSCULAR HGB CONC 30.7 g/dL (31-35); MEAN CORPUSCULAR VOLUME 90.5 fL (81-99); MONOCYTES # (AUTO) 0.9 (0.2-0.8); MONOCYTES % 11.1 % (4.4-11.3); NEUTROPHILS # (AUTO) 4.8 (2.1-6.9); NEUTROPHILS % 56.7 % (38.7-80.0); PLATELET COUNT 270 x10e3/uL (140-360); RED BLOOD COUNT 4.64 x10e6/uL (3.6-5.1); RED CELL DISTRIBUTION WIDTH 14.1 % (11.7-14.4)
[2022-04-10 06:32] LABS: ALBUMIN 3.8 g/dL (3.5-5.0); ALBUMIN/GLOBULIN RATIO 1.3 (0.8-2.0); ANION GAP 16.1 mmol/L (8-16); CALCIUM 9.3 mg/dL (8.4-10.2); CREATININE, SERUM 0.68 mg/dL (0.57-1.11); MAGNESIUM 1.5 MG/DL (1.3-2.1); PHOSPHORUS 4.3 MG/DL (2.3-4.7); POTASSIUM 3.1 mmol/L (3.5-5.1)
[2022-04-10] MEDS ORDERED: TEMAZEPAM 15 MG CAP PO PRN (08:00)
[2022-04-10] MEDS: NIFEDIPINE CR 30 MG TAB PO SCH (08:02)
[2022-04-10] MEDS: ASPIRIN 81 MG ENTERIC COATED PO SCH (08:03)
[2022-04-10] MEDS: FENOFIBRATE 145 MG TAB PO SCH (08:03)
[2022-04-10] MEDS: VALSARTAN/SACUBITRIL 24MG/26MG 1 EA TAB PO SCH ×2 (08:03→17:26)
[2022-04-10] MEDS: CARVEDILOL 12.5 MG TAB PO SCH ×2 (08:04→17:27)
[2022-04-10] MEDS: HYDROCHLOROTHIAZIDE 25 MG TAB PO SCH (08:04)
[2022-04-10] MEDS: ATORVASTATIN 40 MG TAB PO SCH (08:05)
[2022-04-10] MEDS: DOCUSATE SODIUM 100 MG CAP PO SCH ×2 (08:05→17:26)
[2022-04-10] MEDS: FAMOTIDINE 20 MG/2 ML VIAL IV SCH (08:05)
[2022-04-10] MEDS ORDERED: MAGNESIUM SULFATE 2GM/50ML 50 ML IV ONE (08:30)
[2022-04-10 08:36] VITALS: BP 145/76
[2022-04-10] MEDS: INSULIN REGULAR, HUMAN 100 UNIT/1 ML SQ SCH ×3 (08:47→18:00)
[2022-04-10] MEDS ORDERED: (Dapagliflozin Propanediol (Farxiga) 10 MG) PO SCH (09:00)
[2022-04-10] MEDS ORDERED: MAGNESIUM SULF 1GRAM/DEXTROSE 100 ML IV ONE (10:30)
[2022-04-10] MEDS ORDERED: ONDANSETRON HCL 4 MG ORAL DISINTEGRATING TAB PO PRN (11:30)
[2022-04-10] MEDS ORDERED: POTASSIUM CHLORIDE 20 MEQ TAB CR PO ONE (12:00)
[2022-04-10] MEDS ORDERED: HUMULIN R100 UNIT/2 SQ (12:25)
[2022-04-10] MEDS ORDERED: ONDANSETRON ODT4 MG PO (12:25)
[2022-04-10] MEDS ORDERED: Valsartan/Sacubitril 24MG/26MG PO (12:25)
[2022-04-10] MEDS ORDERED: FUROSEMIDE20 MG PO (12:25)
[2022-04-10] MEDS ORDERED: Home Medication PO (12:29)
[2022-04-10 12:31] VITALS: BP 144/80
[2022-04-10] MEDS ORDERED: MAGNESIUM OXID500 MG PO (12:55)
[2022-04-10 16:21] VITALS: BP 153/97
[2022-04-10] MEDS ORDERED: FAMOTIDINE 20 MG TAB PO SCH (16:30)
[2022-04-11] MEDS ORDERED: FUROSEMIDE 20 MG TAB PO SCH (09:00)
== END 2022-04-10 18:20 | disposition home or self-care (01) | DRG 291 ==
LOC: ER 14:32 → ERHOLD 19:14 → MED/SURG3 20:15
PROVIDERS: ADMIT Internal Medicine; ATTEND Internal Medicine
DX: I11.0 Hypertensive heart disease with heart failure (principal); I50.23 Acute on chronic systolic (congestive) heart failure; E11.69 Type 2 diabetes mellitus with other specified complication; I42.8 Other cardiomyopathies; E11.65 Type 2 diabetes mellitus with hyperglycemia; G47.00 Insomnia, unspecified; E87.6 Hypokalemia; E83.42 Hypomagnesemia; I16.0 Hypertensive urgency; R11.2 Nausea with vomiting, unspecified; E78.1 Pure hyperglyceridemia; Z96.651 Presence of right artificial knee joint; Z86.16 Personal history of COVID-19; Z90.49 Acquired absence of other specified parts of digestive tract; Z80.1 Family history of malignant neoplasm of trachea, bronchus and lung; Z82.49 Family history of ischemic heart disease and other diseases of the circulatory system; Z95.810 Presence of automatic (implantable) cardiac defibrillator; Z79.84 Long term (current) use of oral hypoglycemic drugs; Z20.822 Contact with and (suspected) exposure to COVID-19
CPT/HCPCS: 0223U; 36415; 71045; 71260; 80048; 80053; 80061; 81001; 82550; 82553; 82948; 83036; 83690; 83735; 83880; 84100; 84443; 84484; 85025; 85379; 85610; 85730; 87086; 93005; 93306; 93971; 94799; 99284; J0360; J1817; J1940; J2270; J2405; J2550; J3475; J3480; J7030; J7050; J7512; Q9967